=== PATIENT | female | born 1990 | race Caucasian/White ===

== ENCOUNTER 2017-09-30 08:58 | Emergency (ER) | payer BC ==
[2017-09-30 10:08] LABS: BASO % 0.6 % (0.0-1.0); EOS % 0.4 % (0.0-3.0); HEMATOCRIT 36.8 % (36.0-47.0); HEMOGLOBIN 12.3 g/dl (12.0-15.5); IMMATURE GRANULOCYTE % 0.3 % (0-3.0); LYMPH # 1.4 10^3/uL (1.5-6.5); LYMPH % 19.5 % (24.0-44.0); MEAN CORPUSCULAR HEMOGLOBIN 28.8 pg (27.0-33.0); MEAN CORPUSCULAR HGB CONC 33.4 g/dl (32.0-36.5); MEAN CORPUSCULAR VOLUME 86.2 fl (80.0-96.0); MONO # 0.5 10^3/uL (0.0-0.8); MONO % 6.8 % (0.0-5.0); NEUTROPHILS # 5.1 10^3/uL (1.8-7.7); NEUTROPHILS % 72.4 % (36.0-66.0); PLATELET COUNT, AUTOMATED 242 10^3/uL (150-450); RED BLOOD COUNT 4.27 10^6/uL (4.00-5.40); RED CELL DISTRIBUTION WIDTH 12.6 % (11.5-14.5)
[2017-09-30 10:10] LABS: KETONE, URINE AUTO RFX NEGATIVE (NEGATIVE); LEUKOCYTE ESTERASE UR AUTO RFX NEGATIVE (NEGATIVE); NITRITE, URINE AUTO RFX NEGATIVE (NEGATIVE); RBC, URINE AUTO RFX 0 /HPF (0-3); SPECIFIC GRAVITY UR AUTO RFX 1.004 (1.002-1.035); SQUAM EPITHELIAL CELL UR AURFX 0 /HPF (0-6); WBC, URINE AUTO RFX 0 /HPF (0-3)
[2017-09-30 10:24] LABS: HCG, SERUM QUANTITATIVE 31 MIU/ML
[2017-09-30 12:32] LABS: CHLAMYDIA DNA AMPLIFICATION NEGATIVE (NEGATIVE); GC DNA AMPLIFICATION NEGATIVE (NEGATIVE)
== END 2017-09-30 11:52 | disposition home or self-care (01) ==
LOC: M ED 08:58
DX: O20.0 Threatened abortion (principal); Z87.891 Personal history of nicotine dependence; Z3A.00 Weeks of gestation of pregnancy not specified
CPT/HCPCS: 76801

== ENCOUNTER → 2017-10-02 | Outpatient (CLI) | payer BC ==
[2017-10-02 12:40] LABS: HCG, SERUM QUANTITATIVE 4 MIU/ML
== END ==
LOC: M LAB 10:55
DX: O20.0 Threatened abortion (principal); Z3A.00 Weeks of gestation of pregnancy not specified
CPT/HCPCS: 84702

== ENCOUNTER → 2018-01-08 | Outpatient (CLI) | payer BC ==
[2018-01-08 15:12] LABS: HCG, SERUM QUANTITATIVE 4823 MIU/ML
== END ==
LOC: M LAB 13:38
DX: N91.2 Amenorrhea, unspecified (principal)
CPT/HCPCS: 84702

== ENCOUNTER → 2018-01-12 | Outpatient (CLI) | payer BC ==
[2018-01-12 15:25] LABS: HCG, SERUM QUANTITATIVE 12288 MIU/ML
== END ==
LOC: M LAB 14:26
DX: N91.2 Amenorrhea, unspecified (principal)
CPT/HCPCS: 84702

== ENCOUNTER → 2018-02-09 | Outpatient (CLI) | payer MEDICAID ==
[2018-02-09 13:32] LABS: BASO % 0.3 % (0.0-1.0); EOS # 0.1 10^3/uL (0.0-0.50); EOS % 0.5 % (0.0-3.0); HEMATOCRIT 37.8 % (36.0-47.0); HEMOGLOBIN 12.5 g/dl (12.0-15.5); IMMATURE GRANULOCYTE % 0.4 % (0-3.0); LYMPH # 1.6 10^3/uL (1.5-6.5); LYMPH % 15.2 % (24.0-44.0); MEAN CORPUSCULAR HEMOGLOBIN 28.9 pg (27.0-33.0); MEAN CORPUSCULAR HGB CONC 33.1 g/dl (32.0-36.5); MEAN CORPUSCULAR VOLUME 87.3 fl (80.0-96.0); MONO # 0.8 10^3/uL (0.0-0.8); MONO % 7.6 % (0.0-5.0); NEUTROPHILS # 7.8 10^3/uL (1.8-7.7); PLATELET COUNT, AUTOMATED 253 10^3/uL (150-450); RED BLOOD COUNT 4.33 10^6/uL (4.00-5.40); RED CELL DISTRIBUTION WIDTH 12.9 % (11.5-14.5); WHITE BLOOD COUNT 10.3 10^3/uL (4.0-10.0)
[2018-02-09 14:19] LABS: HBsAg Prenatal NEGATIVE (NEGATIVE); HIV 1&2 SCREEN CENTAUR NEGATIVE (NEGATIVE); RUBELLA IgG QUALITATIVE EQUIVOCAL (IMMUNE)
[2018-02-09 14:19] LABS: HEPATITIS C VIRUS ABY INDEX 0.1 INDEX (<0.8)
[2018-02-09 14:40] LABS: CHLAMYDIA DNA AMPLIFICATION NEGATIVE (NEGATIVE); GC DNA AMPLIFICATION NEGATIVE (NEGATIVE)
== END ==
LOC: M SMT 09:58
DX: Z36.89 Encounter for other specified antenatal screening (principal)
CPT/HCPCS: 86762

== ENCOUNTER 2018-03-26 17:15 | Emergency (ER) | payer MEDICAID ==
[~2018-03-26] VITALS: Ht 162.6 cm; Wt 68.6 kg
[~2018-03-26 17:15] MED LIST: PRENCHW PO
[2018-03-26] MEDS ORDERED: NS 1,000 ML IV ONE (19:30)
[2018-03-26 19:48] LABS: BASO % 0.1 % (0.0-1.0); EOS % 0.1 % (0.0-3.0); HEMATOCRIT 36.8 % (36.0-47.0); HEMOGLOBIN 12.1 g/dl (12.0-15.5); LYMPH # 1.4 10^3/uL (1.5-6.5); MEAN CORPUSCULAR HEMOGLOBIN 28.8 pg (27.0-33.0); MEAN CORPUSCULAR HGB CONC 32.9 g/dl (32.0-36.5); MEAN CORPUSCULAR VOLUME 87.6 fl (80.0-96.0); MONO % 7.4 % (0.0-5.0); NEUTROPHILS # 11.2 10^3/uL (1.8-7.7); PLATELET COUNT, AUTOMATED 239 10^3/uL (150-450); WHITE BLOOD COUNT 13.6 10^3/uL (4.0-10.0)
[2018-03-26 20:12] LABS: ALBUMIN 3.3 GM/DL (3.2-5.2); ALT/SGPT 17 U/L (12-78); BILIRUBIN,DIRECT 0.1 MG/DL (0.0-0.2); BILIRUBIN,TOTAL 0.4 MG/DL (0.2-1.0); BLOOD UREA NITROGEN 6 MG/DL (7-18); CALCIUM LEVEL 8.8 MG/DL (8.5-10.1); CARBON DIOXIDE LEVEL 22 MEQ/L (21-32); CHLORIDE LEVEL 102 MEQ/L (98-107); CREATININE FOR GFR 0.51 MG/DL (0.55-1.30); GLOMERULAR FILTRATION RATE > 60.0 (>60); GLUCOSE, FASTING 80 MG/DL (70-100); POTASSIUM SERUM 3.4 MEQ/L (3.5-5.1); SODIUM LEVEL 137 MEQ/L (136-145); TOTAL PROTEIN 7.3 GM/DL (6.4-8.2)
[2018-03-26 20:18] LABS: INFLUENZA A AMPLIFICATION NEGATIVE (NEGATIVE); INFLUENZA B AMPLIFICATION NEGATIVE (NEGATIVE)
[2018-03-26 22:20] VITALS: BP 107/67
[2018-03-26] MEDS ORDERED: AMOX500C PO (22:23)
--- NOTE | 2018-03-27 07:53 | REP ---
Urinary tract sonogram: History: Right flank pain. Comparison: No comparison study. Findings: Scanning at the level of the urinary bladder shows no abnormality. Renal cortical echogenicity pattern is normal bilaterally and contours are smooth. There is no evidence of cyst, mass, or calculus in either kidney. The right kidney measures 10.5 x 4.5 x 4.0 cm. There is mild right-sided hydronephrosis. No calculus seen. Left renal dimensions are 11.3 x 3.6 x 4.0 cm. There is no evidence of left-sided hydronephrosis. heart rate is recorded at 144 beats per minute. Impression: Mild right-sided hydronephrosis. No calculus seen. Otherwise negative urinary tract sonography. Electronically Signed by You Serna MD 03/27/2018 07:45 A
--- NOTE | 2018-03-27 10:40 | ECGEPIP ---
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
== END 2018-03-26 22:37 | disposition home or self-care (01) ==
LOC: M ED 17:15
DX: O99.89 Other specified diseases and conditions complicating pregnancy, childbirth and the puerperium (principal); N13.30 Unspecified hydronephrosis; O23.42 Unspecified infection of urinary tract in pregnancy, second trimester; Z3A.16 16 weeks gestation of pregnancy

== ENCOUNTER → 2018-04-13 | Outpatient (CLI) | payer MEDICAID ==
[~2018-04-13] MED LIST changes: +AMOX500C PO
--- NOTE | 2018-04-13 19:58 | REP ---
OB ULTRASOUND: Real-time sonographic evaluation of the gravid uterus is performed. There is a single living intrauterine gestation. The estimated gestational age is 19 weeks 0 days, EDC 09/07/2018. BPD 49 mm = 19 weeks 3 days HC 160 mm = 18 weeks 6 days AC 139 mm = 19 weeks 2 days Femur length 30 mm = 19 weeks 2 days HC/AC ratio 1.15 within normal range. Estimated weight 283 grams, 54th percentile. Cervix is closed and measures 4.8 cm in length. heart rate 139 beats per minute. SEEN/GROSSLY UNREMARKABLE Lateral ventricles Yes Posterior fossa Yes Upper lip Yes Four-chamber heart No LVOT No RVOT No Stomach Yes Cord insertion Yes Three vessel cord Yes Kidneys Yes Bladder Yes Spine Yes position: Vertex. Placenta: Anterior and grade 1 with no previa or abruption. Amniotic fluid: Within normal limits. Electronically Signed by Jessú De La Cruz MD 04/14/2018 10:34 A
== END ==
LOC: M SMT 14:41
PROVIDERS: ATTEND Advanced Practice Midwife
DX: Z36.89 Encounter for other specified antenatal screening (principal); Z3A.19 19 weeks gestation of pregnancy

== ENCOUNTER → 2018-05-15 | Outpatient (CLI) | payer MEDICAID ==
--- NOTE | 2018-05-15 13:23 | REP ---
Obstetric ultrasound for anatomy follow-up: On the prior study of 04/13/2018 the four-chamber view of the heart, left ventricular outflow tract and right ventricular outflow tract could not be optimally demonstrated. The anatomy was otherwise unremarkable previously. On the study today the four-chamber view of the heart and the cardiac right and left ventricular outflow tracts are satisfactorily demonstrated and are unremarkable . The remainder of the anatomy today is unremarkable and unchanged from the prior study. There are no anomalies. There is a single intrauterine gestation in a vertex presentation. heart rate is 136 beats per minute. The placenta is anterior without previa or abruptio and grade one maturity. The amniotic fluid volume subjectively is normal. Cervix measures 3.9 cm length. Gestational age by the ultrasound today is 23 weeks 4 days with an CARLITOS of 09/07/2018. Gestational age by the first ultrasound is 23 weeks 4 days with an CARLITOS of 09/07/2018. weight is 670 grams (1 pound, 5 ounces). This is the 45th percentile for 23 weeks 4 days. Electronically Signed by Jesús Aguilar MD 05/15/2018 01:15 P
== END ==
LOC: M RAD 09:18
PROVIDERS: ATTEND Advanced Practice Midwife
DX: Z34.82 Encounter for supervision of other normal pregnancy, second trimester (principal); Z36.89 Encounter for other specified antenatal screening; Z3A.23 23 weeks gestation of pregnancy

== ENCOUNTER → 2018-06-12 | Outpatient (CLI) | payer MEDICAID ==
[2018-06-12 13:28] LABS: HEMATOCRIT 34.3 % (36.0-47.0); HEMOGLOBIN 11.2 g/dl (12.0-15.5); MEAN CORPUSCULAR HEMOGLOBIN 29.2 pg (27.0-33.0); MEAN CORPUSCULAR HGB CONC 32.7 g/dl (32.0-36.5); MEAN CORPUSCULAR VOLUME 89.3 fl (80.0-96.0); PLATELET COUNT, AUTOMATED 243 10^3/uL (150-450); RED BLOOD COUNT 3.84 10^6/uL (4.00-5.40); WHITE BLOOD COUNT 17.2 10^3/uL (4.0-10.0)
== END ==
LOC: M LAB 11:49
PROVIDERS: ATTEND Advanced Practice Midwife
DX: Z34.82 Encounter for supervision of other normal pregnancy, second trimester (principal); Z3A.00 Weeks of gestation of pregnancy not specified

== ENCOUNTER → 2018-06-26 | Outpatient (CLI) | payer MEDICAID | LOC: M LAB 08:07 | PROVIDERS: ATTEND Advanced Practice Midwife | DX: Z36.89 Encounter for other specified antenatal screening (principal) ==

== ENCOUNTER → 2018-08-14 | Outpatient (REF) | payer OTHER | LOC: M LAB REF 17:10 | PROVIDERS: ATTEND Obstetrics & Gynecology | DX: Z36.85 Encounter for antenatal screening for Streptococcus B (principal); Z3A.00 Weeks of gestation of pregnancy not specified ==

== ENCOUNTER 2018-09-10 05:54 | Inpatient (IN) | payer OTHER ==
[2018-09-10] VITALS (38 sets, daily range): BP systolic 97–139; BP diastolic 53–90
[~2018-09-10] VITALS: Ht 162.6 cm; Wt 83.4 kg
[2018-09-10] MEDS ORDERED: PENICILLIN G POTASSIUM IV 5 MU in D5W MINI-BAG PLUS 100 ML IV STA (07:28)
[2018-09-10 08:09] LABS: HEMATOCRIT 37.1 % (36.0-47.0); HEMOGLOBIN 12.3 g/dl (12.0-15.5); MEAN CORPUSCULAR HEMOGLOBIN 29.8 pg (27.0-33.0); MEAN CORPUSCULAR HGB CONC 33.2 g/dl (32.0-36.5); MEAN CORPUSCULAR VOLUME 89.8 fl (80.0-96.0); PLATELET COUNT, AUTOMATED 203 10^3/uL (150-450); RED BLOOD COUNT 4.13 10^6/uL (4.00-5.40); WHITE BLOOD COUNT 17.2 10^3/uL (4.0-10.0)
--- NOTE | 2018-09-10 08:14 | RO ---
DATE OF PROCEDURE: 09/10/2018 28-year-old female at 40 and 0/7 weeks gestation by LMP consistent with 9 week ultrasound with EDC 09/10/2018 who presents with regular contractions every 3-4 minutes starting around 2 am in the day of admission. She denies vaginal bleeding. There is good movement. Contractions increased in intensity. COURSE: Patient initiated care at 9 weeks gestation on 02/09/2018. Her first trimester blood pressure was 118/64. She had an episode of acute symptomatic kidney stones during which resolved spontaneously. She had no other complications. MEDICAL HISTORY: Noncontributory. SURGICAL HISTORY: None. SOCIAL HISTORY: Father of the baby is involved. The patient lives in [place]. She denies cigarettes, alcohol or drug use. FAMILY HISTORY: Noncontributory. PHYSICAL EXAMINATION: Blood pressure 134/74, pulse 84, afebrile. She appears uncomfortable. Head and neck exam is normal. Lungs are clear. Heart regular rate and rhythm. Abdomen is nontender, . heart tones category 1. Sterile vaginal exam 3-4 cm -2 station vertex. Extremities nontender. LABS: Blood type is A+, rubella equivocal, GBS positive on 08/14/2018. ASSESSMENT: 28-year-old female at 40 and 0/7 weeks gestation presents in labor. PLAN: The patient will be admitted on 09/10/2018. Antibiotics for GBS prophylaxis.
[2018-09-10] MEDS: PENICILLIN G POTASSIUM IV 2.5 MU in APPROPRIATE DILUENT 1 EA IV SCH ×4 (12:00→23:58)
[2018-09-10] MEDS ORDERED: LR 1,000 ML IV SCH (15:19)
--- NOTE | 2018-09-10 15:21 | IPNPDOC ---
Obstetrical Progress Note Date of Service Sep 10, 2018 Subjective Pt doing well, breathing through contractions Objective Vital Signs Date Time Temp Pulse Resp B/P (MAP) Pulse Ox O2 Delivery O2 Flow Rate FiO2 09/10/18 10:24 97.3 78 18 125/59 (81) Assessment Heart Rate (FHR): 135 Variability: Moderate Accelerations: Positive Decelerations: None Heart Rate Tracing: Category I Tocometer Contractions: Yes Frequency: regular Sterile Vaginal Examination Dilation: 6 cm Effacement (%): 90% Station: -1 (AROM for clear fluid) Cervical Consistency: Soft Assessment and Plan Additional Comments 28 yo G1 at 40 0/7 wks presented in spontaneous labor. -minimal cervical change this am, now s/p AROM for clear fluid. Will also start pitocin for augmentation -FWB reassuring -on PCN for GBS+ seen with Dr. Arik Alvarenga, PGY3 NANCY ALVARENGA PGY-3 Sep 10, 2018 15:21
[2018-09-10] MEDS ORDERED: OXYTOCIN DRIP 30 UNITS in APPROPRIATE DILUENT 1 EA IV SCH (15:30)
[2018-09-10] MEDS ORDERED: BUTORPHANOL 2 MG/ML INJ (J0595) IV ONE (16:00)
[2018-09-10] MEDS ORDERED: PROMETHAZINE INJ 25 MG/ML VIAL (J2550) IV ONE (16:00)
[2018-09-10] MEDS ORDERED: FENTANYL 2MCG/ML ROPIVACAINE 0.2% IN 0.9% NACL 100ML IVBAG As Ordered ONE (19:57)
[2018-09-10] MEDS ORDERED: diphenhydrAMINE INJ 50MG/ML VIAL (J1200) IV PRN (21:02)
[2018-09-10] MEDS ORDERED: LACTATED RINGER'S 1000 ML IV PRN (21:02)
[2018-09-10] MEDS ORDERED: REFRIGERATOR IV KEYS XX PRN (21:02)
[2018-09-10] MEDS ORDERED: ePHEDrine SULFATE 25 MG/5 ML(5MG/ML) SYRINGE IV PRN (21:02)
[2018-09-10] MEDS ORDERED: EPIDURAL COMMENT XX SCH (21:02)
[2018-09-10] MEDS ORDERED: FENTANYL/ROPIVACAINE/NACL BAG 100 ML EPIDURAL SCH (21:02)
[2018-09-10] MEDS ORDERED: ONDANSETRON 4MG/2ML VIAL (J2405) IV PRN (21:02)
[2018-09-10] MEDS ORDERED: EPIDURAL/PCA KEYS XX PRN (21:02)
[2018-09-10] MEDS ORDERED: NALOXONE INJ 0.4 MG/1 ML VIAL (J2310) IV PRN (21:02)
--- NOTE | 2018-09-10 22:48 | IPNPDOC ---
Obstetrical Progress Note Date of Service Sep 10, 2018 Subjective Pt doing well s/p epidural, now comfortable Objective Vital Signs Date Time Temp Pulse Resp B/P (MAP) Pulse Ox O2 Delivery O2 Flow Rate FiO2 09/10/18 21:46 18 09/10/18 21:43 78 99/59 (72) 09/10/18 19:12 97.6 Assessment Heart Rate (FHR): 125 Variability: Moderate Accelerations: Positive Decelerations: None Tocometer Contractions: Yes Frequency: regular Sterile Vaginal Examination Dilation: 7 cm Effacement (%): 90% Station: 0 Postion/Presentation: Cephalic presentation Assessment and Plan Group B Streptococcus: Positive Additional Comments 28 yo G0, presented in labor, now being augmented Labor: slow cervical change since 3 pm, but now effaced and very stretchy. Will check in 2 hours for continued change FWB: reassuring GBS +, on PCN NANCY ALVARENGA PGY-3 Sep 10, 2018 22:48
[2018-09-11] VITALS (15 sets, daily range): BP systolic 88–123; BP diastolic 47–67
--- NOTE | 2018-09-11 01:19 | IPNPDOC ---
Obstetrical Progress Note Date of Service Sep 11, 2018 Subjective Pt feeling increased rectal pressure Objective Vital Signs Date Time Temp Pulse Resp B/P (MAP) Pulse Ox O2 Delivery O2 Flow Rate FiO2 09/10/18 22:31 98.5 72 18 109/58 (75) Assessment Heart Rate (FHR): 135 Variability: Moderate Accelerations: Positive Decelerations: Variable Tocometer Contractions: Yes Frequency: regular Sterile Vaginal Examination Dilation: complete Station: +1 Assessment and Plan Additional Comments 28 yo G0 at 40 1/7 wks in labor reducible anterior lip, will begin pushing GBS +, on PCN NANCY ALVARENGA PGY-3 Sep 11, 2018 01:19
[2018-09-11] MEDS ORDERED: BICITRA 30ML SOLN UDC PO ONE (03:30)
[2018-09-11] MEDS ORDERED: ceFAZolin 2 GM/D5W 50 ML IV BAG (J0690 PER 500MG) As Ordered ONE (03:32)
[2018-09-11] MEDS ORDERED: BICITRA 30ML SOLN UDC As Ordered ONE (03:34)
[2018-09-11] MEDS ORDERED: OXYC1TAB23 PO (03:41)
[2018-09-11] MEDS ORDERED: IBUP-1022 PO (03:44)
[2018-09-11] MEDS ORDERED: LIDOCAINE 2% W/EPIN INJ 20ML **PRES FREE As Ordered ONE (04:01)
[2018-09-11] MEDS ORDERED: SODIUM BICARBONATE 8.4% INJ 50MEQ 50 ML VIAL As Ordered ONE (04:01)
[2018-09-11] MEDS ORDERED: OXYTOCIN INJ 10 UNITS/ML VIAL (J2590) As Ordered ONE (04:01)
[2018-09-11] MEDS ORDERED: MORPHINE PRES-FREE INJ 10 MG/10 ML VIAL (J2274) As Ordered ONE (04:10)
[2018-09-11] MEDS ORDERED: ONDANSETRON 4MG/2ML VIAL (J2405) IV PRN ×3 (04:14→04:45)
[2018-09-11] MEDS ORDERED: NALBUPHINE HCL 10 MG/ML AMP (J2300) IV PRN ×2 (04:14→04:30)
[2018-09-11] MEDS ORDERED: METOCLOPRAMIDE INJ 10MG/2ML VIAL (J2765) IV PRN (04:14)
[2018-09-11] MEDS ORDERED: diphenhydrAMINE INJ 50MG/ML VIAL (J1200) IV PRN (04:14)
[2018-09-11] MEDS ORDERED: NALOXONE INJ 0.4 MG/1 ML VIAL (J2310) IV PRN ×2 (04:14)
[2018-09-11 04:28] LABS: CORD GAS ABE V -2.7; CORD GAS HCO3 V 23.5 MEQ/L; CORD GAS O2 SAT V 29.2 %; CORD GAS PCO2 V 45.9 mmHg; CORD GAS PH V 7.327 UNITS; CORD GAS PO2 V 15.9 mmHg; CORD GAS SBC V 20.6 MEQ/L; CORD GAS TCO2 V 24.9 MEQ/L
[2018-09-11 04:30] LABS: CORD GAS ABE A -4.4; CORD GAS HCO3 A 22.4 MEQ/L; CORD GAS O2 SAT A 46.3 %; CORD GAS PCO2 A 47.5 mmHg; CORD GAS PH A 7.292 UNITS; CORD GAS PO2 A 22.2 mmHg; CORD GAS SBC A 19.7 MEQ/L; CORD GAS TCO2 A 23.9 MEQ/L
[2018-09-11] MEDS ORDERED: PERCOCET 5MG/325MG TAB PO PRN (04:30)
[2018-09-11] MEDS ORDERED: MEPERIDINE INJ 25 MG/ML VIAL (J2175) IV PRN (04:30)
[2018-09-11] MEDS ORDERED: KETOROLAC 30 MG/ML VIAL (J1885) IV PRN (04:30)
[2018-09-11] MEDS ORDERED: fentaNYL 100 MCG/2 ML INJECTION (J3010) IV PRN (04:30)
[2018-09-11] MEDS ORDERED: HYDROMORPHONE HCL 0.5 MG/ 0.5 ML SYRINGE (J1170 PER 1) IV PRN (04:30)
[2018-09-11] MEDS ORDERED: OXYTOCIN DRIP 30 UNITS in APPROPRIATE DILUENT 1 EA IV SCH (04:31)
[2018-09-11] MEDS ORDERED: LR 1,000 ML IV SCH (04:31)
[2018-09-11] MEDS ORDERED: DOCUSATE SODIUM 100 MG CAP PO PRN (04:45)
[2018-09-11] MEDS ORDERED: MEASLES,MUMPS,RUBELLA VACCINE INJ (MMR-II) (90707) SC SCH (04:45)
[2018-09-11] MEDS ORDERED: RHOGAM 300 MCG (1500 IU) INJ (J2790) IM SCH (04:45)
[2018-09-11] MEDS ORDERED: KETOROLAC 30 MG/ML VIAL (J1885) As Ordered ONE (05:24)
[2018-09-11] MEDS: KETOROLAC 30 MG/ML VIAL (J1885) IV SCH ×4 (05:30→23:37)
[2018-09-11] MEDS: PRENATAL VITAMINS CHEWABLE TABLET PO SCH (07:49)
[2018-09-11] MEDS: PERCOCET 5MG/325MG TAB PO PRN ×2 (07:50→21:05)
[2018-09-11] MEDS ORDERED: SLF 3 ML SYR IV PRN (10:45)
[2018-09-11] MEDS: SLF 3 ML SYR IV SCH ×2 (14:00→21:53)
--- NOTE | 2018-09-11 19:28 | RO ---
DATE OF PROCEDURE: 09/11/2018 PREPROCEDURE DIAGNOSIS: Term , arrest of descent. POSTPROCEDURE DIAGNOSIS: Term , arrest of descent. PROCEDURE: Primary low transverse section. SURGEON: Amador Elise MD LANDSCAPE GARDENER: Lia Corona MD ANESTHESIA: Epidural. ESTIMATED BLOOD LOSS: 600 mL. FINDINGS: 3640 grams, 8 pounds 0 ounce female infant, scores of 8 and 8. Nuchal cord times one. Normal uterus, fallopian tubes, and ovaries. DESCRIPTION OF PROCEDURE: The patient was taken to the operating room where spinal anesthesia was induced. She was prepped and draped in a sterile fashion in the supine position. A Landon catheter was placed. A Pfannenstiel skin incision was made with a scalpel and carried through to the fascia. The fascia was nicked and extended. The fascia was dissected off the rectus muscles. Peritoneal cavity was entered. Bladder flap was created. A curvilinear incision was made in the lower uterine segment until clear fluid was noted. This was extended manually. The infant was delivered from the vertex position without difficulty. The cord was doubly clamped and cut. The was handed off to the awaiting nurses. Placenta was expressed. The uterus was exteriorized and cleared of clots and debris. Uterine incision was closed with #0 Vicryl in a running locked fashion. A second imbricating layer of #0 Vicryl was placed. The uterus was placed back in the abdominal cavity. The peritoneum was closed with #2-0 Vicryl in a running fashion. The fascia was closed with #0 Vicryl in a running fashion. The deep layer was irrigated and closed with #2-0 chromic. The skin was closed with #4-0 Monocryl subcuticular sutures. Sponge, instrument, and needle counts were correct.
[2018-09-12 02:10] VITALS: BP 99/55
[2018-09-12] MEDS: PERCOCET 5MG/325MG TAB PO PRN ×3 (03:50→20:16)
[2018-09-12] MEDS: SLF 3 ML SYR IV SCH ×2 (06:00→14:00)
[2018-09-12 06:23] VITALS: BP 90/50
[2018-09-12] MEDS: PRENATAL VITAMINS CHEWABLE TABLET PO SCH (08:06)
[2018-09-12] MEDS: IBUPROFEN 800 MG TAB PO SCH ×3 (08:06→22:32)
--- NOTE | 2018-09-12 08:08 | IPNPDOC ---
Text Note Date of Service The patient was seen on 09/12/18. NOTE PO #1 Feels well. Adequate pain management. on demand. Voiding VSS, afebrile, normotensive Breasts soft, nipples intact Fundus firm, NT Dressing intact, old drainage noted Lochia rubra light without odor PO #1 Routine care. Anticipate D/C in am VS,Fishbone, I+O VS, Fishbone, I+O Vital Signs Date Time Temp Pulse Resp B/P (MAP) Pulse Ox O2 Delivery O2 Flow Rate FiO2 09/12/18 06:23 98.3 83 18 90/50 (21) 98 I&O- Last 24 Hours up to 6 AM 09/12/18 06:00 Intake Total 496 ml Output Total 1250 ml Balance -754 ml Jade Mcbride CNM Sep 12, 2018 08:08
[2018-09-12 09:30] LABS: HEMATOCRIT 28.1 % (36.0-47.0); MEAN CORPUSCULAR HEMOGLOBIN 29.5 pg (27.0-33.0); MEAN CORPUSCULAR VOLUME 92.1 fl (80.0-96.0); PLATELET COUNT, AUTOMATED 172 10^3/uL (150-450); RED BLOOD COUNT 3.05 10^6/uL (4.00-5.40)
[2018-09-12 10:48] VITALS: BP 91/53
[2018-09-12 14:00] VITALS: BP 94/54
[2018-09-12 18:00] VITALS: BP 106/60
[2018-09-12 22:02] VITALS: BP 111/60
[2018-09-13] MEDS: PERCOCET 5MG/325MG TAB PO PRN ×2 (00:58→11:01)
[2018-09-13 02:03] VITALS: BP 108/61
[2018-09-13 05:54] VITALS: BP 120/59
[2018-09-13] MEDS: IBUPROFEN 800 MG TAB PO SCH (07:55)
[2018-09-13] MEDS: PRENATAL VITAMINS CHEWABLE TABLET PO SCH (07:55)
[2018-09-13] MEDS ORDERED: PERC5TAB12 PO (17:04)
== END 2018-09-13 12:35 | disposition home or self-care (01) | DRG 540 ==
LOC: M LDO 05:54 → M LDI 07:24 → M OBS 09-11 06:09
PROVIDERS: ADMIT Advanced Practice Midwife; ATTEND Specialist
PROC: 10D00Z1 Extraction of Products of Conception, Low, Open Approach (ICD-10-PCS; principal; 2018-09-10)
PROC: 10907ZC Drainage of Amniotic Fluid, Therapeutic from Products of Conception, Via Natural or Artificial Opening (ICD-10-PCS; 2018-09-10)
DX: O48.0 Post-term pregnancy (principal); O99.824 Streptococcus B carrier state complicating childbirth; Z3A.40 40 weeks gestation of pregnancy; Z37.0 Single live birth; O69.81X0 Labor and delivery complicated by cord around neck, without compression, not applicable or unspecified; O32.4XX0 Maternal care for high head at term, not applicable or unspecified

== ENCOUNTER → 2019-01-01 | Outpatient (REF) | payer OTHER, SELFPAY ==
[~2019-01-01] MED LIST changes: +IBUP-1022 PO; +OXYC1TAB23 PO; +PERC5TAB12 PO
== END ==
LOC: M LAB REF 16:59
PROVIDERS: ATTEND Advanced Practice Midwife
DX: Z12.4 Encounter for screening for malignant neoplasm of cervix (principal)

== ENCOUNTER → 2020-05-22 | Outpatient (REF) | payer BC ==
[2020-05-22 18:06] LABS: HEMATOCRIT 34.2 % (36.0-47.0); MEAN CORPUSCULAR HEMOGLOBIN 29.2 pg (27.0-33.0); MEAN CORPUSCULAR HGB CONC 32.2 g/dl (32.0-36.5); MEAN CORPUSCULAR VOLUME 90.7 fl (80.0-96.0); PLATELET COUNT, AUTOMATED 238 10^3/uL (150-450); RED BLOOD COUNT 3.77 10^6/uL (4.00-5.40); WHITE BLOOD COUNT 12.3 10^3/uL (4.0-10.0)
[2020-05-22 19:26] LABS: HEPATITIS C VIRUS ABY INDEX < 0.0 INDEX (<0.8); HIV 1&2 SCREEN CENTAUR NEGATIVE (NEGATIVE)
== END ==
LOC: M PLALAB 15:00
PROVIDERS: ATTEND Obstetrics & Gynecology
DX: Z3A.19 19 weeks gestation of pregnancy (principal)

== ENCOUNTER → 2020-06-09 | Outpatient (CLI) | payer BC ==
--- NOTE | 2020-06-09 14:40 | REP ---
INDICATION: ANATOMY. COMPARISON: None. TECHNIQUE: Real-time sonographic evaluation of the gravid uterus performed. FINDINGS: Estimated gestational age is21 weeks 5 days, EDC 10/15/2020. Today's measurements indicate appropriate growth. Presentation: Cephalic Placenta posterior, grade 0, without evidence of placenta previa. heart rate is recorded at 149 beats per minute. Amniotic fluid is subjectively normal. Closed cervical length is measured at 3.9 cm. Biometry chart: BPD: 49 mm, 20 weeks 6 days, 28th percentile. HC: 187 mm, 21 weeks 6 days, 30th percentile AC: 168 mm, 21 weeks 6 days, 52nd percentile Femur length: 37 mm, 21 weeks 5 days, 49th percentile HC to AC ratio: 1.12, normal range 1.05-1.24. Estimated weight: 439g, 40th percentile. anatomy: Cranium: Grossly normal Lateral Ventricles/Choroid Plexus: Grossly normal Posterior Fossa/Cerebellum: Grossly normal Nose/lips/profile: Grossly normal Four chamber heart: Grossly normal Right ventricular outflow tract: Grossly normal Left ventricular outflow tract: Grossly normal Left-sided stomach: Grossly normal Kidneys: Grossly normal Bladder: Grossly normal Cord Insertion: Grossly normal 3 vessel cord: Grossly normal Spine: Grossly normal IMPRESSION: Viable single intrauterine gestation as above. <Electronically signed by Jesús De La Cruz > 06/09/20 [id number]
== END ==
LOC: M WHC 12:31
PROVIDERS: ATTEND Obstetrics & Gynecology
DX: Z36.3 Encounter for antenatal screening for malformations (principal); Z3A.21 21 weeks gestation of pregnancy

== ENCOUNTER → 2020-06-23 | Outpatient (REF) | payer BC | LOC: M SFHCWAGY 13:21 | PROVIDERS: ATTEND Advanced Practice Midwife | DX: O34.219 Maternal care for unspecified type scar from previous cesarean delivery (principal) ==

== ENCOUNTER → 2020-07-21 | Outpatient (REF) | payer BC | LOC: M SFHCWAGY 12:52 | PROVIDERS: ATTEND Advanced Practice Midwife | DX: Z36.89 Encounter for other specified antenatal screening (principal) ==

== ENCOUNTER → 2020-08-01 | Outpatient (REF) | payer BC ==
[2020-08-01 18:51] LABS: HEMATOCRIT 34.5 % (36.0-47.0); HEMOGLOBIN 10.7 g/dl (12.0-15.5); MEAN CORPUSCULAR HEMOGLOBIN 28.6 pg (27.0-33.0); MEAN CORPUSCULAR VOLUME 92.2 fl (80.0-96.0); PLATELET COUNT, AUTOMATED 232 10^3/uL (150-450); RED BLOOD COUNT 3.74 10^6/uL (4.00-5.40); WHITE BLOOD COUNT 14.9 10^3/uL (4.0-10.0)
== END ==
LOC: M PLALAB 13:27
PROVIDERS: ATTEND Advanced Practice Midwife
DX: O34.219 Maternal care for unspecified type scar from previous cesarean delivery (principal)

== ENCOUNTER → 2020-08-15 | Outpatient (CLI) | payer BC | LOC: M LAB 08:51 | PROVIDERS: ATTEND Advanced Practice Midwife | DX: O99.810 Abnormal glucose complicating pregnancy (principal) ==

== ENCOUNTER → 2020-09-22 | Outpatient (REF) | payer BC | LOC: M SFHCWAGY 12:51 | PROVIDERS: ATTEND Advanced Practice Midwife | DX: Z36.85 Encounter for antenatal screening for Streptococcus B (principal); Z3A.00 Weeks of gestation of pregnancy not specified ==

== ENCOUNTER → 2020-10-03 | Outpatient (REF) | payer BC ==
[~2020-10-03] MED LIST changes: +IRON15CH PO
== END ==
LOC: M LAB REF 16:24
PROVIDERS: ATTEND Surgery
DX: D18.09 Hemangioma of other sites (principal)

== ENCOUNTER → 2020-10-11 | Outpatient (CLI) | payer BC | LOC: M LABSMTC 10:29 | PROVIDERS: ATTEND Anesthesiology | DX: Z01.812 Encounter for preprocedural laboratory examination (principal); Z20.822 Contact with and (suspected) exposure to COVID-19 ==

== ENCOUNTER 2020-10-16 05:36 | Inpatient (IN) | payer BC ==
[~2020-10-16] VITALS: Ht 162.6 cm; Wt 82.9 kg
[2020-10-16] VITALS (9 sets, daily range): BP systolic 101–132; BP diastolic 53–71
[2020-10-16] MEDS ORDERED: ceFAZolin SOD 2 GM in IV 1 EA IV ONE (05:50)
[2020-10-16] MEDS ORDERED: BICITRA 30ML SOLN UDC PO ONE (05:50)
[2020-10-16] MEDS ORDERED: LR 1,000 ML IV SCH ×2 (05:50→09:45)
[2020-10-16] MEDS ORDERED: HOME MED LIST COMPLETE! XX SCH (05:50)
[2020-10-16] MEDS ORDERED: LR 800 ML IV ONE (05:50)
[2020-10-16 06:38] LABS: HEMATOCRIT 34.2 % (36.0-47.0); HEMOGLOBIN 10.9 g/dl (12.0-15.5); MEAN CORPUSCULAR HEMOGLOBIN 27.7 pg (27.0-33.0); MEAN CORPUSCULAR HGB CONC 31.9 g/dl (32.0-36.5); MEAN CORPUSCULAR VOLUME 86.8 fl (80.0-96.0); PLATELET COUNT, AUTOMATED 224 10^3/uL (150-450); RED BLOOD COUNT 3.94 10^6/uL (4.00-5.40); WHITE BLOOD COUNT 14.9 10^3/uL (4.0-10.0)
[2020-10-16] MEDS ORDERED: OXYTOCIN INJ 10 UNITS/ML VIAL (J2590) As Ordered ONE (07:19)
[2020-10-16] MEDS ORDERED: ONDANSETRON 4MG/2ML VIAL As Ordered ONE (07:19)
[2020-10-16] MEDS ORDERED: KETOROLAC 60MG 2ML VIAL As Ordered ONE (07:19)
[2020-10-16] MEDS ORDERED: dexameTHASONE 4 MG/ML 1ML VIAL (J1100 PER 1MG) As Ordered ONE (07:19)
[2020-10-16] MEDS ORDERED: fentaNYL 100 MCG/2 ML INJECTION (J3010) As Ordered ONE (07:19)
[2020-10-16] MEDS ORDERED: MORPHINE PRES-FREE INJ 10 MG/10 ML VIAL (J2274) As Ordered ONE (07:20)
[2020-10-16] MEDS ORDERED: METOCLOPRAMIDE INJ 10MG/2ML VIAL (J2765 PER 1) IV PRN (07:40)
[2020-10-16] MEDS ORDERED: ONDANSETRON 4MG/2ML VIAL IV PRN ×3 (07:40→08:45)
[2020-10-16] MEDS ORDERED: diphenhydrAMINE 50MG/ML VIAL (J1200) IV PRN (07:40)
[2020-10-16] MEDS ORDERED: NALOXONE INJ 0.4MG/1ML VIAL (J2310 PER 1MG) IV PRN ×2 (07:40)
[2020-10-16] MEDS ORDERED: NALBUPHINE HCL 10 MG/ML AMP (J2300) IV PRN (07:40)
[2020-10-16] MEDS ORDERED: PHENYLephrine 500MCG 5ML (100MCG/ML) SYRINGE As Ordered ONE (08:17)
[2020-10-16] MEDS ORDERED: OXYTOCIN 30 UNITS IN 0.9% NaCl 500ML IV BAG (J2590) As Ordered ONE (08:34)
--- NOTE | 2020-10-16 08:41 | ROOPDOC ---
[facility] Report Of Operation Report of Operation DATE OF PROCEDURE: 10/16/20 Report of operation Preoperative diagnosis: 39 weeks gestation, prior Postoperative diagnosis: same Procedure: Repeat low transverse section, removal of skin tag from left labia majora. Surgeon: Ellen Salcedo M.D. Asst.: Karin Bonilla CNM EBL: 500 ml. Urine output: 100 mL's. Findings: 7 lbs. 10 oz. female , 's 8 and 9 g normal uterus, fallopian tubes, ovaries. 1 cm skin tag on the anterior, outer left labia majora. Operative summary: Patient states the operating room where spinal anesthesia was induced. She was prepped and draped in a sterile fashion in the supine position. A Landon catheter was placed. A Pfannenstiel skin incision was made with scalpel. Fascia was incised and extended bilaterally. The peritoneal cavity was entered. A Mobius retractor was placed. A bladder flap was created. A curvilinear incision was made in lower uterine segment until Clear fluid was noted. The incision was extended manually. The was delivered from the vertex position without difficulty. Cord was doubly clamped and cut. The was handed to the awaiting nurses. The placenta was expressed. Uterus was closed with O-Vicryl in a running locked fashion. A second imbricating layer of Vicryl was placed. A moderately large skin tag was noted on the left labia majora during the procedure. The patient was asked intraoperatively if she would like to have the skin tag removed since she was under anesthesia. She verbally agreed to this procedure. The skin tag was elevated with tissue forceps. A scalpel was used to excise the skin tag at its base. A single interrupted suture of 2-0 chromic was placed. Good hemostasis was noted. Peritoneum was closed with 2-0 Vicryl a running fashion. Fascia was closed with 0 Vicryl in running fashion. Skin was closed 4-0 Monocryl subcuticular sutures. Sponge, instrument and needle counts were correct. Karin Bonilla CNM, assisted with all aspects of the procedure. She helped close each layer of the incision and deliver the fetus. ELLEN SALCEDO MD Oct 16, 2020 08:41
[2020-10-16] MEDS ORDERED: RHOGAM 300 MCG (1500 IU) INJ (J2790) IM SCH (08:45)
[2020-10-16] MEDS ORDERED: MEASLES,MUMPS,RUBELLA VACCINE INJ (MMR-II) (90707) SC SCH (08:45)
[2020-10-16] MEDS ORDERED: fentaNYL 100 MCG/2 ML INJECTION (J3010) IV PRN (08:45)
[2020-10-16] MEDS ORDERED: MEPERIDINE INJ 25 MG/ML VIAL (J2175) IV PRN (08:45)
[2020-10-16] MEDS ORDERED: PERCOCET 5MG/325MG TAB PO PRN ×2 (08:45)
[2020-10-16] MEDS ORDERED: SIMETHICONE 80MG CHEW TAB PO PRN (08:45)
[2020-10-16] MEDS ORDERED: OXYC1TAB23 PO (08:47)
[2020-10-16] MEDS ORDERED: IBUP80TA PO (08:47)
[2020-10-16] MEDS ORDERED: OXYTOCIN DRIP 30 UNITS in IV 1 EA IV SCH (08:55)
[2020-10-16] MEDS: PRENATAL VITAMINS CHEWABLE TABLET PO SCH (09:00)
[2020-10-16] MEDS: KETOROLAC 30 MG/ML 1ML VIAL IV SCH ×2 (14:06→20:00)
[2020-10-17] MEDS: KETOROLAC 30 MG/ML 1ML VIAL IV SCH (01:57)
[2020-10-17 02:00] VITALS: BP 120/58
[2020-10-17 06:00] VITALS: BP 110/55
[2020-10-17 07:31] LABS: HEMATOCRIT 28.4 % (36.0-47.0); HEMOGLOBIN 9.1 g/dl (12.0-15.5); MEAN CORPUSCULAR HEMOGLOBIN 28.5 pg (27.0-33.0); PLATELET COUNT, AUTOMATED 185 10^3/uL (150-450); RED BLOOD COUNT 3.19 10^6/uL (4.00-5.40); WHITE BLOOD COUNT 15.6 10^3/uL (4.0-10.0)
[2020-10-17] MEDS: valACYclovir HCL 500 MG TAB PO SCH ×3 (08:48→20:08)
[2020-10-17] MEDS: PRENATAL VITAMINS CHEWABLE TABLET PO SCH (08:48)
[2020-10-17 10:00] VITALS: BP 111/51
[2020-10-17] MEDS: IBUPROFEN 800 MG TAB PO SCH ×2 (10:23→18:38)
[2020-10-17 14:00] VITALS: BP 106/55
[2020-10-17 18:00] VITALS: BP 105/55
[2020-10-17] MEDS: PERCOCET 5MG/325MG TAB PO PRN ×2 (20:08→23:53)
[2020-10-17 22:00] VITALS: BP 111/57
[2020-10-18 02:00] VITALS: BP 90/55
[2020-10-18] MEDS: IBUPROFEN 800 MG TAB PO SCH ×2 (02:10→09:32)
[2020-10-18] MEDS: PERCOCET 5MG/325MG TAB PO PRN (05:52)
[2020-10-18 06:00] VITALS: BP 91/55
--- NOTE | 2020-10-18 09:30 | DS.PDOC ---
Discharge Summary General Date of Admission Oct 16, 2020 at 05:36 Date of Discharge 2020 Discharge Summary PROCEDURES PERFORMED DURING STAY: . ADMITTING DIAGNOSES: 1. 39 weeks, prior section. DISCHARGE DIAGNOSES: 1. , Same. COMPLICATIONS/CHIEF COMPLAINT: Previous Section. HISTORY OF PRESENT ILLNESS: 30-year-old G2, P1 female at 39 weeks gestation presents for repeat section.. HOSPITAL COURSE: 30-year-old G2, P1 female at 39 weeks gestation presents for repeat section. On October 16, 2020 she underwent repeat section without complication. Her postoperative course was unremarkable. She had adequate return of bladder bowel function. She was deemed stable for discharge on postop day #2. The baby was followed by pediatrics and was also stable for discharge.. DISCHARGE MEDICATIONS: Please see below. ALLERGIES: Please see below. PHYSICAL EXAMINATION ON DISCHARGE: VITAL SIGNS: Please see below. GENERAL: NAD HEENT: Within normal limits CARDIOVASCULAR EXAMINATION: RRR RESPIRATORY EXAMINATION: Clear to auscultation ABDOMINAL EXAMINATION: Nontender, dressing clean dry intact EXTREMITIES: Nontender LABORATORY DATA: Please see below. PROGNOSIS: Good ACTIVITY: As tolerated. DIET: Regular DISCHARGE PLAN: Home DISCHARGE INSTRUCTIONS: 1. Discharge home today 2. Instructions reviewed 3. Follow-up 2 weeks DISCHARGE CONDITION: Stable. TIME SPENT ON DISCHARGE: 10 minutes. Vital Signs/I&Os Vital Signs Date Time Temp Pulse Resp B/P (MAP) Pulse Ox O2 Delivery O2 Flow Rate FiO2 10/18/20 06:22 16 10/18/20 06:00 97.9 71 91/55 (67) 10/18/20 02:00 98 Room Air Discharge Medications Scheduled Ibuprofen (Ibuprofen) 800 Mg Tablet, 800 MG PO Q8H Pnv No.118/Iron Fumarate/FA ( 19 Chewable Tablet) 1 Chw Chw, 1 TAB PO DAILY, (Reported) Scheduled PRN Oxycodone HCl/Acetaminophen (Oxycodone-Acetaminophen 5-325) 1 Each Tablet, 1 TAB PO TIDP PRN for pain Allergies Coded Allergies: No Known Allergies (Unverified , 09/30/17) ELLEN SALCEDO MD Oct 18, 2020 09:30
[2020-10-18] MEDS: PRENATAL VITAMINS CHEWABLE TABLET PO SCH (09:32)
[2020-10-18] MEDS: valACYclovir HCL 500 MG TAB PO SCH (10:27)
== END 2020-10-18 13:50 | disposition home or self-care (01) | DRG 540 ==
LOC: M LDI 05:36 → M OBS 10:00
PROVIDERS: ADMIT Specialist; ATTEND Specialist
PROC: 0HB9XZZ Excision of Perineum Skin, External Approach (ICD-10-PCS; 2020-10-16)
PROC: 10D00Z1 Extraction of Products of Conception, Low, Open Approach (ICD-10-PCS; principal; 2020-10-16 07:30)
DX: O34.211 Maternal care for low transverse scar from previous cesarean delivery (principal); Z37.0 Single live birth; Z3A.39 39 weeks gestation of pregnancy; L91.8 Other hypertrophic disorders of the skin; O99.72 Diseases of the skin and subcutaneous tissue complicating childbirth

== ENCOUNTER → 2021-12-27 | Outpatient (REF) | payer BC ==
[~2021-12-27] MED LIST changes: +IBUP80TA PO
== END ==
LOC: M LAB REF 16:01
PROVIDERS: ATTEND Physician Assistant
DX: R05.9 Cough, unspecified (principal); R50.9 Fever, unspecified

== ENCOUNTER → 2022-01-11 | Outpatient (REF) | payer BC | LOC: M SFHCDERM 13:56 | PROVIDERS: ATTEND Nurse Practitioner Family | DX: D22.61 Melanocytic nevi of right upper limb, including shoulder (principal) ==

== ENCOUNTER → 2022-04-04 | Outpatient (REF) | payer BC | LOC: M LAB REF 09:09 | PROVIDERS: ATTEND Surgery | DX: L72.11 Pilar cyst (principal); I78.1 Nevus, non-neoplastic ==

== ENCOUNTER → 2022-04-16 | Outpatient (REF) | payer BC | LOC: M LAB REF 16:14 | PROVIDERS: ATTEND Nurse Practitioner Family | DX: Z33.1 Pregnant state, incidental (principal) ==

== ENCOUNTER 2022-07-19 00:29 | Emergency (ER) | payer BC ==
[~2022-07-19] VITALS: Ht 162.6 cm; Wt 74.8 kg
[2022-07-19 01:34] LABS: BASO % 0.3 % (0.0-1.0); EOS % 0.1 % (0.0-3.0); HEMATOCRIT 35.1 % (36.0-47.0); HEMOGLOBIN 11.5 g/dl (12.0-15.5); LYMPH # 1.6 10^3/uL (1.5-5.0); LYMPH % 10.7 % (24.0-44.0); MEAN CORPUSCULAR HGB CONC 32.8 g/dl (32.0-36.5); MEAN CORPUSCULAR VOLUME 85.6 fl (80.0-96.0); MONO # 0.9 10^3/uL (0.0-0.8); MONO % 6.1 % (2.0-8.0); NEUTROPHILS # 12.2 10^3/uL (1.5-8.5); NEUTROPHILS % 82.4 % (36.0-66.0); PLATELET COUNT, AUTOMATED 235 10^3/uL (150-450); WHITE BLOOD COUNT 14.8 10^3/uL (4.0-10.0)
[2022-07-19 01:45] LABS: BLOOD UREA NITROGEN 8 MG/DL (9-23); CALCIUM LEVEL 8.2 MG/DL (8.5-10.1); CARBON DIOXIDE LEVEL 25 MMOL/L (20-31); CHLORIDE LEVEL 108 MMOL/L (98-107); CREATININE FOR GFR 0.77 MG/DL (0.55-1.30); GLOMERULAR FILTRATION RATE > 60.0 (>60); GLUCOSE, FASTING 111 MG/DL (60-100); POTASSIUM SERUM 3.7 MMOL/L (3.5-5.1); SODIUM LEVEL 140 MMOL/L (136-145)
[2022-07-19 02:07] LABS: HCG, SERUM QUALITATIVE NEGATIVE (NEGATIVE)
[2022-07-19] MEDS ORDERED: NS 1,000 ML IV ONE (07:45)
[2022-07-19] MEDS ORDERED: KETOROLAC 30 MG/ML 1ML VIAL IV ONE (07:45)
[2022-07-19] MEDS ORDERED: METOCLOPRAMIDE INJ 10MG/2ML VIAL IV ONE (07:45)
[2022-07-19] MEDS ORDERED: ISOVUE-370 76% 100ML VIAL As Ordered ONE (08:06)
[2022-07-19 10:16] VITALS: BP 108/71
[2022-07-19] MEDS ORDERED: ONDA4TAB6 PO (10:29)
[2022-07-19] MEDS ORDERED: NAPR-837 PO (10:29)
== END 2022-07-19 10:43 | disposition home or self-care (01) ==
LOC: M ED 00:29
DX: N93.9 Abnormal uterine and vaginal bleeding, unspecified (principal); R11.0 Nausea; R51.9 Headache, unspecified
CPT/HCPCS: 36415; 71045; 74177; 80048; 81001; 83605; 84703; 85025; 85652; 86140; 87040; 87086; 87880; 96374; 96375; 99284; J1885; J2765; Q9967

== ENCOUNTER → 2022-08-20 | Outpatient (REF) | payer BC ==
[~2022-08-20] MED LIST changes: +NAPR-837 PO; +ONDA4TAB6 PO
[2022-08-20 18:29] LABS: BASO % 0.4 % (0.0-1.0); EOS # 0.1 10^3/uL (0.0-0.5); EOS % 0.6 % (0.0-3.0); HEMATOCRIT 39.3 % (36.0-47.0); HEMOGLOBIN 12.3 g/dl (12.0-15.5); LYMPH # 2.4 10^3/uL (1.5-5.0); LYMPH % 25.7 % (24.0-44.0); MEAN CORPUSCULAR HEMOGLOBIN 27.5 pg (27.0-33.0); MEAN CORPUSCULAR HGB CONC 31.3 g/dl (32.0-36.5); MEAN CORPUSCULAR VOLUME 87.7 fl (80.0-96.0); MONO # 0.6 10^3/uL (0.0-0.8); NEUTROPHILS # 6.3 10^3/uL (1.5-8.5); PLATELET COUNT, AUTOMATED 318 10^3/uL (150-450); RED BLOOD COUNT 4.48 10^6/uL (4.00-5.40); WHITE BLOOD COUNT 9.4 10^3/uL (4.0-10.0)
[2022-08-20 19:09] LABS: HEMOGLOBIN A1c 4.9 % (4.0-6.0)
[2022-08-20 19:16] LABS: ALBUMIN 3.7 G/DL (3.2-5.2); ALKALINE PHOSPHATASE 82 U/L (46-116); ALT/SGPT 21 U/L (7.0-40); AST/SGOT < 8 U/L (<34); BILIRUBIN,TOTAL 0.4 MG/DL (0.3-1.2); BLOOD UREA NITROGEN 12 MG/DL (9-23); CALCIUM LEVEL 8.7 MG/DL (8.5-10.1); CARBON DIOXIDE LEVEL 24 MMOL/L (20-31); CHLORIDE LEVEL 105 MMOL/L (98-107); CHOLESTEROL LEVEL 156 MG/DL (<200); CHOLESTEROL RISK RATIO 3.78 (<5); CREATININE FOR GFR 0.75 MG/DL (0.55-1.30); GLOMERULAR FILTRATION RATE > 60.0 (>60); GLUCOSE, FASTING 85 MG/DL (60-100); HDL CHOLESTEROL 41.2 MG/DL (>40); NON-HDL-C 114.8 MG/DL; POTASSIUM SERUM 4.4 MMOL/L (3.5-5.1); SODIUM LEVEL 138 MMOL/L (136-145); THYROID STIMULATING HORMONE 1.305 uIU/ML (0.55-4.78); TOTAL 25(OH) VITAMIN D 27.5 NG/ML (20.0-100.0); TOTAL PROTEIN 6.8 G/DL (5.7-8.2); TRIGLYCERIDES LEVEL 139 MG/DL (<150)
== END ==
LOC: M LAB REF 17:24
PROVIDERS: ATTEND Nurse Practitioner Family
DX: Z13.228 Encounter for screening for other metabolic disorders (principal)

== ENCOUNTER → 2023-01-05 | Outpatient (REF) | payer BC | LOC: M LAB REF 18:00 | PROVIDERS: ATTEND Physician Assistant Medical | DX: R05.9 Cough, unspecified (principal) ==

== ENCOUNTER → 2023-05-13 | Outpatient (REF) | payer BC | LOC: M LAB REF 13:33 | PROVIDERS: ATTEND Nurse Practitioner Family | DX: Z12.4 Encounter for screening for malignant neoplasm of cervix (principal) ==

== ENCOUNTER → 2023-08-12 | Outpatient (REF) | payer BC ==
[~2023-08-12] MED LIST changes: +ONDA-282 PO; -ONDA4TAB6 PO
[2023-08-12 14:53] LABS: BASO # 0.1 10^3/uL (0.0-0.2); BASO % 0.5 % (0.0-1.0); EOS # 0.1 10^3/uL (0.0-0.5); EOS % 0.5 % (0.0-3.0); HEMATOCRIT 38.4 % (36.0-47.0); HEMOGLOBIN 12.3 g/dl (12.0-15.5); LYMPH % 18.8 % (24.0-44.0); MEAN CORPUSCULAR HEMOGLOBIN 27.6 pg (27.0-33.0); MEAN CORPUSCULAR VOLUME 86.1 fl (80.0-96.0); MONO # 0.7 10^3/uL (0.0-0.8); MONO % 6.2 % (2.0-8.0); NEUTROPHILS % 73.7 % (36.0-66.0); PLATELET COUNT, AUTOMATED 235 10^3/uL (150-450); RED BLOOD COUNT 4.46 10^6/uL (4.00-5.40); WHITE BLOOD COUNT 10.8 10^3/uL (4.0-10.0)
[2023-08-12 14:55] LABS: THYROID STIMULATING HORMONE 1.451 uIU/ML (0.55-4.78)
[2023-08-12 14:57] LABS: TOTAL 25(OH) VITAMIN D 22.3 NG/ML (20.0-100.0)
[2023-08-12 15:04] LABS: ALBUMIN 3.8 G/DL (3.2-5.2); ALKALINE PHOSPHATASE 87 U/L (46-116); ALT/SGPT 19 U/L (7.0-40); AST/SGOT 10 U/L (<34); BILIRUBIN,TOTAL 0.3 MG/DL (0.3-1.2); BLOOD UREA NITROGEN 11 MG/DL (9-23); CARBON DIOXIDE LEVEL 27 MMOL/L (20-31); CHLORIDE LEVEL 108 MMOL/L (98-107); CHOLESTEROL LEVEL 167 MG/DL (<200); CREATININE FOR GFR 0.84 MG/DL (0.55-1.30); GLOMERULAR FILTRATION RATE > 60.0 (>60); GLUCOSE, FASTING 98 MG/DL (60-100); HDL CHOLESTEROL 46.3 MG/DL (>40); LDL CHOLESTEROL 99.1 MG/DL (<100); MAGNESIUM LEVEL 1.8 MG/DL (1.8-2.4); NON-HDL-C 120.7 MG/DL; POTASSIUM SERUM 4.1 MMOL/L (3.5-5.1); SODIUM LEVEL 140 MMOL/L (136-145); TRIGLYCERIDES LEVEL 108 MG/DL (<150)
== END ==
LOC: M LAB REF 14:12
PROVIDERS: ATTEND Nurse Practitioner Family
DX: E66.3 Overweight (principal); E55.9 Vitamin D deficiency, unspecified

== ENCOUNTER → 2023-10-21 | Outpatient (CLI) | payer BC, OTHER, SELFPAY | LOC: M WHC 10:10 | PROVIDERS: ATTEND Nurse Practitioner Family | DX: N64.4 Mastodynia (principal); N92.6 Irregular menstruation, unspecified; R92.313 Mammographic fatty tissue density, bilateral breasts; N88.8 Other specified noninflammatory disorders of cervix uteri; R93.89 Abnormal findings on diagnostic imaging of other specified body structures ==

== ENCOUNTER 2025-01-01 19:00 | Emergency (ER) | payer OTHER ==
[~2025-01-01] VITALS: Ht 160 cm; Wt 83.8 kg
[~2025-01-01 19:00] MED LIST changes: -IBUP-1022 PO; +IBUP600T42 PO
[2025-01-01 19:32] LABS: BASO # 0.0 10^3/uL (0.0-0.2); BASO % 0.3 % (0.0-1.0); EOS # 0.1 10^3/uL (0.0-0.5); EOS % 0.4 % (0.0-3.0); LYMPH # 2.2 10^3/uL (1.5-5.0); LYMPH % 18.5 % (24.0-44.0); MONO # 0.7 10^3/uL (0.0-0.8); MONO % 5.5 % (2.0-8.0); NEUTROPHILS # 8.8 10^3/uL (1.5-8.5); NEUTROPHILS % 75.0 % (36.0-66.0); PLATELET COUNT, AUTOMATED 295 10^3/uL (150-450)
[2025-01-01 19:46] LABS: CK-MB VALUE MASS 2.2 NG/ML (<3.6)
[2025-01-01 19:48] LABS: CALCIUM LEVEL 9.0 MG/DL (8.5-10.1); CARBON DIOXIDE LEVEL 25 MMOL/L (20-31); CHLORIDE LEVEL 106 MMOL/L (98-107); CPK CREATINE PHOSPHOKINASE 95 U/L (34-145); CREATININE FOR GFR 0.79 MG/DL (0.55-1.30); GLOMERULAR FILTRATION RATE > 90.0 (>60); MB/CK RELATIVE INDEX 2.31 (< OR =4); POTASSIUM SERUM 3.7 MMOL/L (3.5-5.1); SODIUM LEVEL 141 MMOL/L (136-145)
[2025-01-01 21:03] LABS: CK-MB VALUE MASS 2.0 NG/ML (<3.6)
[2025-01-01] MEDS ORDERED: ISOVUE-370 76% 100 ML VIAL As Ordered ONE (21:03)
[2025-01-01 21:07] LABS: CPK CREATINE PHOSPHOKINASE 85 U/L (34-145); MB/CK RELATIVE INDEX 2.35 (< OR =4)
[2025-01-01 22:51] VITALS: BP 112/59; TEMP 98.4; O2SAT 97
== END 2025-01-01 22:53 | disposition home or self-care (01) ==
LOC: M ED 19:00
DX: R07.89 Other chest pain (principal); Z79.899 Other long term (current) drug therapy
CPT/HCPCS: 71045; 71275; 80048; 82550; 82553; 84484; 85025; 93005; 93041; 94760; 99284; Q9967

== ENCOUNTER → 2025-01-07 | Outpatient (REF) | payer OTHER | LOC: M LAB REF 17:47 | PROVIDERS: ATTEND Physician Assistant | DX: B34.9 Viral infection, unspecified (principal) ==